=== PATIENT | female | born 1930 | race Caucasian/White ===

== ENCOUNTER → 2016-10-28 | Outpatient (CLI) | payer OTHER ==
[~2016-10-28] MED LIST: ARICEPT5 MG PO; COUMADIN4 MG PO; COUMADIN5 MG PO; DIGOX125 MCG PO; DOC-Q-LACE100 MG PO; DONEPEZIL HCL5 MG PO; HYDROCHLOROTH12.5 MG PO; LASIX20 MG PO; LEVAQUIN500 MG PO; LOPRESSOR 25 MG25 MG PO; LOPRESSOR50 MG PO; LOW DOSE ASPIRI81 MG PO; MAPAP500 M1 PO; MULTAQ400 MG PO; NORVASC 5 MG TAB5 MG PO; ONE DAILY WOME1 EAC1 PO; POTASSIUM CHLO10 MEQ PO; PROAMATINE 2.52.5 MG PO; PROTONIX40 MG PO; REMERON15 MG PO; SERTRALINE HCL25 MG PO; ZOLOFT25 MG PO
== END ==
LOC: LBRF 10:37
DX: G30.9 Alzheimer's disease, unspecified (principal); I10 Essential (primary) hypertension; R35.0 Frequency of micturition
CPT/HCPCS: 81001; 87086

== ENCOUNTER 2016-12-18 10:52 | Emergency (ER) | payer OTHER ==
[~2016-12-18 10:52] MED LIST changes: -MAPAP500 M1 PO; -NORVASC 5 MG TAB5 MG PO; -POTASSIUM CHLO10 MEQ PO; -SERTRALINE HCL25 MG PO
[2016-12-18 11:26] LABS: HEMOGLOBIN 12.6 gm/dl (12.3-15.3); WHITE BLOOD COUNT 5.2 K/UL (4.5-11.0)
[2017-05-01] MEDS ORDERED: SERTRALINE HCL25 MG PO (20:47)
[2017-05-01] MEDS ORDERED: MAPAP500 M1 PO (20:47)
[2017-05-01] MEDS ORDERED: POTASSIUM CHLO10 MEQ PO (20:48)
[2017-05-01] MEDS ORDERED: NORVASC 5 MG TAB5 MG PO (20:48)
== END 2016-12-18 16:30 | disposition home or self-care (01) ==
LOC: ER1 10:52
PROVIDERS: Specialist/Technologist Athletic Trainer
DX: R10.9 Unspecified abdominal pain (principal); R07.9 Chest pain, unspecified; N17.9 Acute kidney failure, unspecified; I11.9 Hypertensive heart disease without heart failure; F03.90 Unspecified dementia, unspecified severity, without behavioral disturbance, psychotic disturbance, mood disturbance, and anxiety; F02.80 Dementia in other diseases classified elsewhere, unspecified severity, without behavioral disturbance, psychotic disturbance, mood disturbance, and anxiety; Z88.2 Allergy status to sulfonamides; Z95.0 Presence of cardiac pacemaker; Z79.82 Long term (current) use of aspirin; Z79.899 Other long term (current) drug therapy
CPT/HCPCS: 36415; 71010; 80053; 82550; 82553; 83874; 84484; 85025; 93005; 96360; 96361; 99285

== ENCOUNTER 2017-01-27 18:31 | Emergency (ER) | payer OTHER ==
[2017-01-27 19:56] LABS: HEMOGLOBIN 12.9 gm/dl (12.3-15.3); RED BLOOD COUNT 4.03 M/UL (4.00-5.10); WHITE BLOOD COUNT 7.6 K/UL (4.5-11.0)
[2017-05-01] MEDS ORDERED: SERTRALINE HCL25 MG PO (20:47)
[2017-05-01] MEDS ORDERED: MAPAP500 M1 PO (20:47)
[2017-05-01] MEDS ORDERED: NORVASC 5 MG TAB5 MG PO (20:48)
[2017-05-01] MEDS ORDERED: POTASSIUM CHLO10 MEQ PO (20:48)
== END 2017-01-28 01:28 | disposition home or self-care (01) ==
LOC: ER1 18:31
PROVIDERS: Family Medicine
DX: R56.9 Unspecified convulsions (principal); S09.90XA Unspecified injury of head, initial encounter; F03.90 Unspecified dementia, unspecified severity, without behavioral disturbance, psychotic disturbance, mood disturbance, and anxiety; N18.9 Chronic kidney disease, unspecified; Z88.2 Allergy status to sulfonamides; W17.89XA Other fall from one level to another, initial encounter
CPT/HCPCS: 36415; 70450; 71010; 72125; 80053; 81001; 82550; 82553; 83874; 84484; 85025; 87077; 87086; 87186; 93005; 99285; J7040